=== PATIENT | male | born 1955 | race Caucasian/White ===

== ENCOUNTER 2017-05-26 18:45 | Emergency (ER) | payer OTHER ==
[~2017-05-26] VITALS: Ht 190.5 cm; Wt 100.0 kg
[2017-05-26] VITALS (7 sets, daily range): BP systolic 73–105; BP diastolic 44–67; PULSE 66–98; RESP 16–20; TEMP 97.5; O2SAT 97–100
[2017-05-26] MEDS ORDERED: DIPHTH/TETANUS/ACEL PERTUSSIS (BOOSTER) 0.5 ML VIAL/PFS IM ONE (18:48)
[2017-05-26] MEDS ORDERED: ceFAZolin 2 GM PREMIX 50 ML ONE (18:48)
[2017-05-26 19:06] LABS: AUTOMATED NEUTROPHIL # 3.8 TH/MM3 (1.8-7.7); BASOPHIL % 0.4 % (0.0-2.0); EOSINOPHIL % 0.5 % (0.0-4.0); HEMATOCRIT 37.4 % (39.0-51.0); HEMO FLAGS DIFF FINAL; LYMPH % 32.6 % (9.0-44.0); LYMPHOCYTE # 2.1 TH/MM3 (1.0-4.8); MEAN CELL VOLUME 99.4 FL (80.0-100.0); MEAN CORPUSCULAR HEMOGLOBIN 33.5 PG (27.0-34.0); MEAN CORPUSCULAR HGB CONC 33.7 % (32.0-36.0); MONO % 7.9 % (0.0-8.0); NEUT % 58.6 % (16.0-70.0); PLATELET COUNT 197 TH/MM3 (150-450); RED BLOOD COUNT 3.76 MIL/MM3 (4.50-5.90); RED CELL DISTRIBUTION WIDTH 12.5 % (11.6-17.2); WHITE BLOOD COUNT 6.4 TH/MM3 (4.0-11.0)
--- NOTE | 2017-05-26 19:11 | RADRPT ---
EXAM DATE/TIME: 05/26/2017 18:40 [facility] COMPARISON: No previous studies available for comparison. INDICATIONS : Trauma alert. Fall from ladder, 20 feet. MEDICAL HISTORY : Unobtainable. SURGICAL HISTORY : Unobtainable. ENCOUNTER: Initial ACUITY: 1 day PAIN SCORE: 0/10 LOCATION: Bilateral chest FINDINGS: A single view of the chest demonstrates the lungs to be symmetrically aerated without evidence of mas s, infiltrate or effusion. The cardiomediastinal contours are unremarkable. Osseous structures are intact. CONCLUSION: No acute disease. Kristopher Rossi MD on May 26, 2017 at 19:09 Board Certified Radiologist. This report was verified electronically.
--- NOTE | 2017-05-26 19:11 | RADRPT ---
EXAM DATE/TIME: 05/26/2017 18:40 [facility] COMPARISON: No previous studies available for comparison. INDICATIONS : Trauma alert. Fall from ladder, 20 feet. Mid right lower leg laceration. MEDICAL HISTORY : Unobtainable. SURGICAL HISTORY : Unobtainable. ENCOUNTER: Initial ACUITY: 1 day PAIN SCORE: 5/10 LOCATION: Right lower leg. FINDINGS: Two view examination of the right tibia demonstrates no evidence of fracture or dislocation. Bony mi neralization is normal. The soft tissue structures are intact. CONCLUSION: No definite fracture or joint dislocation. Kristopher Rossi MD on May 26, 2017 at 19:09 Board Certified Radiologist. This report was verified electronically.
--- NOTE | 2017-05-26 19:13 | PD ---
HPI Chief Complaint: Fall Time Seen by Provider: 18:55 Travel History International Travel<30 days: No Contact w/Intl Traveler<30days: No Traveled to known affect area: No History of Present Illness HPI 63-year-old male complains of right leg laceration. Patient states that he fell off a 20 foot ladder today. Patient denies loss of consciousness. Patient denies any headache or neck pain. Patient denies any visual change. She denies any chest pain or shortness of breath. Patient denies abdominal pain. Patient denies any back pain. Patient complains of laceration to right leg. Patient denies any leg pain. Patient is not up-to-date with TD booster. Patient has history of atrial fibrillation and on Eliqis. Patient states that he drove himself to the local fire station after the fall. At the fire station patient had a syncopal episode and blood pressure drop into the 80s. Trauma alert was called. Patient was brought to the ED for evaluation. Patient has no complaint now. EMS personnel reported large amount of blood loss at the scene. [facility] Social History Tobacco Use: No Allergies-Medications (Allergen,Severity, Reaction): Coded Allergies: No Known Allergies (Unverified , 05/26/17) Reported Meds & Prescriptions Reported Meds & Active Scripts Active Keflex (Cephalexin) 500 Mg Capsule 500 Mg PO TID Review of Systems General / Constitutional: No: Fever Eyes: No: Visual changes HENT: No: Headaches Cardiovascular: No: Chest Pain or Discomfort Respiratory: No: Shortness of Breath Gastrointestinal: No: Abdominal Pain Genitourinary: No: Dysuria Musculoskeletal: No: Pain Skin: No Rash Neurologic: No: Weakness Psychiatric: No: Depression Endocrine: No: Polydipsia Hematologic/Lymphatic: No: Easy Bruising Physical Exam Narrative GENERAL: Well-nourished, well-developed patient. SKIN: Focused skin assessment warm/dry. HEAD: Normocephalic. EYES: No scleral icterus. No injection or drainage. Pupils 2 mm equal reactive. NECK: Supple, trachea midline. No JVD or lymphadenopathy. No neck tenderness. CARDIOVASCULAR: Regular rate and rhythm without murmurs, gallops, or rubs. RESPIRATORY: Breath sounds equal bilaterally. No accessory muscle use. GASTROINTESTINAL: Abdomen soft, non-tender, nondistended. MUSCULOSKELETAL: No cyanosis, or edema. BACK: Nontender without obvious deformity. No CVA tenderness. Neurologic exam: Patient's awake and alert oriented 3. No obvious focal neurological deficit. Patient has 6 cm laceration medial aspect the right low leg. No active bleeding. Sensorimotor function distally intact. Data Data Last Documented VS Vital Signs Date Time Temp Pulse Resp B/P (MAP) Pulse Ox O2 Delivery O2 Flow Rate FiO2 05/26/17 23:47 05/26/17 23:00 80 20 99 Room Air 05/26/17 18:57 97.5 05/26/17 18:30 21 Orders Orders Cefazolin 2 Gm Premix (Ancef 2 Gm Premix (05/26/17 18:48) Pxgg-Sbp-Rkgawd (Booster) Inj (Boostrix (05/26/17 18:48) I-Stat Profile (05/26/17 18:47) I-Stat Creatinine (05/26/17 18:47) Complete Blood Count With Diff (05/26/17 18:47) Prothrombin Time / Inr (Pt) (05/26/17 18:47) Act Partial Throm Time (Ptt) (05/26/17 18:47) Type And Screen (05/26/17 18:47) Chest, Single Ap (05/26/17 18:47) Iv Access Insert/Monitor (05/26/17 18:47) Ecg Monitoring (05/26/17 18:47) Oximetry (05/26/17 18:47) Oxygen Administration (05/26/17 18:47) Tibia/Fibula (Ap/Lat) (05/26/17 ) Lidocaine 1% Inj (50 Ml) (Xylocaine 1% I (05/26/17 19:15) Hemoglobin (Hgb) (05/26/17 20:35) Hematocrit (Hct) (05/26/17 20:35) Ed Discharge Order (05/26/17 23:09) Trauma Office Use Only (05/26/17 07:24) Labs Laboratory Tests Test 05/26/17 18:50 05/26/17 20:45 White Blood Count 6.4 TH/MM3 Red Blood Count 3.76 MIL/MM3 Hemoglobin 12.6 GM/DL 11.5 GM/DL Bedside Hemoglobin 12.6 G/DL Hematocrit 37.4 % 34.7 % Bedside Hematocrit 37.0 % Mean Corpuscular Volume 99.4 FL Mean Corpuscular Hemoglobin 33.5 PG Mean Corpuscular Hemoglobin Concent 33.7 % Red Cell Distribution Width 12.5 % Platelet Count 197 TH/MM3 Mean Platelet Volume 8.7 FL Neutrophils (%) (Auto) 58.6 % Lymphocytes (%) (Auto) 32.6 % Monocytes (%) (Auto) 7.9 % Eosinophils (%) (Auto) 0.5 % Basophils (%) (Auto) 0.4 % Neutrophils # (Auto) 3.8 TH/MM3 Lymphocytes # (Auto) 2.1 TH/MM3 Monocytes # (Auto) 0.5 TH/MM3 Eosinophils # (Auto) 0.0 TH/MM3 Basophils # (Auto) 0.0 TH/MM3 CBC Comment DIFF FINAL Differential Comment Prothrombin Time 11.7 SEC Prothromb Time International Ratio 1.1 RATIO Activated Partial Thromboplast Time 24.4 SEC Bedside Sodium 144 MMOL/L Bedside Potassium 4.0 MMOL/L Bedside Chloride 106 MMOL/L Bedside Blood Urea Nitrogen 6 MG/DL Bedside Creatinine 1.2 MG/DL Bedside Glucose 107 MG/DL MDM Medical Decision Making Medical Screen Exam Complete: Yes Emergency Medical Condition: Yes Interpretation(s) Last Impressions Chest X-Ray 05/26/17 1847 Signed Impressions: Service Date/Time: Friday, May 26, 2017 18:40 - CONCLUSION: No acute disease. Kristopher Rossi MD Tibia/Fibula X-Ray 05/26/17 0000 Signed Impressions: Service Date/Time: Friday, May 26, 2017 18:40 - CONCLUSION: No definite fracture or joint dislocation. Kristopher Rossi MD I-STAT sodium 144 potassium 4.0 chloride 106 BUN 6 hemoglobin 12.6. Differential Diagnosis Differential diagnosis including right leg laceration, vasovagal reaction, anemia, dehydration, electrolyte imbalance. Narrative Course 63-year-old male with right leg laceration and syncopal episode. Patient's vital signs stable now. Most likely vasovagal reaction. TD booster given. Ancef 2 g IV given. Patient was given IV fluid, normal saline solution 3 L IV bolus. Blood pressure occasionally dipped into the 70s and 80s in the ED. Patient absolutely refused to be admitted. Patient wants to go home. Diagnosis Primary Impression: Laceration of right lower leg Qualified Codes: S81.811A - Laceration without foreign body, right lower leg, initial encounter Additional Impressions: Hypotension Qualified Codes: I95.9 - Hypotension, unspecified Syncope Qualified Codes: R55 - Syncope and collapse Patient Instructions: General Instructions Additional Instructions: Wound care daily. Keflex as directed. Follow-up with personal physician or return in 10 days for suture removal. Scripts Cephalexin (Keflex) 500 Mg Capsule 500 MG PO TID for Infection, #15 CAP 0 Refills Prov: Juan Pablo Eagle MD 05/26/17 Disposition: 01 DISCHARGE HOME Condition: Stable Juan Pablo Eagle MD May 26, 2017 19:13
[2017-05-26] MEDS ORDERED: LIDOCAINE HCL 1% 50 ML VIAL INFIL ONE (19:15)
[2017-05-26 19:23] LABS: APTT (PATIENT) 24.4 SEC (24.3-30.1); INTERNATIONAL NORMALIZED RATIO 1.1 RATIO; PROTHROMBIN TIME - PATIENT 11.7 SEC (9.8-11.6)
[2017-05-26] MEDS ORDERED: CEPH-460 PO (19:30)
--- NOTE | 2017-05-26 20:42 | PD ---
Physical Exam Narrative I was asked by Dr. Eagle to repair patient's leg laceration. Please see his documentation for full H&P. Data Data Last Documented VS Vital Signs Date Time Temp Pulse Resp B/P (MAP) Pulse Ox O2 Delivery O2 Flow Rate FiO2 05/26/17 19:27 66 16 91/52 (65) 100 Room Air 05/26/17 18:57 97.5 05/26/17 18:30 21 Orders Orders Cefazolin 2 Gm Premix (Ancef 2 Gm Premix (05/26/17 18:48) Qawu-Gbs-Tnorld (Booster) Inj (Boostrix (05/26/17 18:48) I-Stat Profile (05/26/17 18:47) I-Stat Creatinine (05/26/17 18:47) Complete Blood Count With Diff (05/26/17 18:47) Prothrombin Time / Inr (Pt) (05/26/17 18:47) Act Partial Throm Time (Ptt) (05/26/17 18:47) Type And Screen (05/26/17 18:47) Chest, Single Ap (05/26/17 18:47) Iv Access Insert/Monitor (05/26/17 18:47) Ecg Monitoring (05/26/17 18:47) Oximetry (05/26/17 18:47) Oxygen Administration (05/26/17 18:47) Tibia/Fibula (Ap/Lat) (05/26/17 ) Drug Screen, Random Urine (05/26/17 18:57) Lidocaine 1% Inj (50 Ml) (Xylocaine 1% I (05/26/17 19:15) Hemoglobin (Hgb) (05/26/17 20:35) Hematocrit (Hct) (05/26/17 20:35) Labs Laboratory Tests Test 05/26/17 18:50 White Blood Count 6.4 TH/MM3 Red Blood Count 3.76 MIL/MM3 Hemoglobin 12.6 GM/DL Bedside Hemoglobin 12.6 G/DL Hematocrit 37.4 % Bedside Hematocrit 37.0 % Mean Corpuscular Volume 99.4 FL Mean Corpuscular Hemoglobin 33.5 PG Mean Corpuscular Hemoglobin Concent 33.7 % Red Cell Distribution Width 12.5 % Platelet Count 197 TH/MM3 Mean Platelet Volume 8.7 FL Neutrophils (%) (Auto) 58.6 % Lymphocytes (%) (Auto) 32.6 % Monocytes (%) (Auto) 7.9 % Eosinophils (%) (Auto) 0.5 % Basophils (%) (Auto) 0.4 % Neutrophils # (Auto) 3.8 TH/MM3 Lymphocytes # (Auto) 2.1 TH/MM3 Monocytes # (Auto) 0.5 TH/MM3 Eosinophils # (Auto) 0.0 TH/MM3 Basophils # (Auto) 0.0 TH/MM3 CBC Comment DIFF FINAL Differential Comment Prothrombin Time 11.7 SEC Prothromb Time International Ratio 1.1 RATIO Activated Partial Thromboplast Time 24.4 SEC Bedside Sodium 144 MMOL/L Bedside Potassium 4.0 MMOL/L Bedside Chloride 106 MMOL/L Bedside Blood Urea Nitrogen 6 MG/DL Bedside Creatinine 1.2 MG/DL Bedside Glucose 107 MG/DL MDM Supervised Visit with KISHAN: No Procedures Procedure Narrative LACERATION REPAIR LOCATION: This patient on the right mid shaft medial aspect of right lower extremity LENGTH: Approximately 8 centimeters in total length NUMBER OF STITCHES/ONEIL: 10 combination simple interrupted and simple mattress REPAIR: Verbal consent was obtained. The area of the laceration was cleaned and prepped. The laceration was infiltrated with lidocaine without epi. The wound was copiously irrigated and explored without evidence of foreign body, bony involvement, ligament injury, tendon injury, or neurovascular injury. The wound was closed using 3-0 Ethilon. This was a single layer repair. A sterile dressing was applied by nurse. The patient was advised to keep the affected area as clean and dry as possible using soap and water. There were no complications. Patient tolerated the procedure well. Diagnosis Primary Impression: Laceration of right lower leg Qualified Codes: S81.811A - Laceration without foreign body, right lower leg, initial encounter Additional Impressions: Syncope Qualified Codes: R55 - Syncope and collapse Hypotension Qualified Codes: I95.9 - Hypotension, unspecified Patient Instructions: General Instructions Additional Instruction: Wound care daily. Keflex as directed. Follow-up with personal physician or return in 10 days for suture removal. Scripts Cephalexin (Keflex) 500 Mg Capsule 500 MG PO TID for Infection, #15 CAP 0 Refills Prov: Juan Pablo Eagle MD 05/26/17 Disposition: 01 DISCHARGE HOME Condition: Stable Justen Will May 26, 2017 20:42
[2017-05-26 20:57] LABS: HEMATOCRIT 34.7 % (39.0-51.0)
== END 2017-05-26 23:49 | disposition home or self-care (01) ==
LOC: EDBD 18:45 → NEPI 18:45 → NEPE 23:49
DX: S81.811A Laceration without foreign body, right lower leg, initial encounter (principal); R55 Syncope and collapse; I95.9 Hypotension, unspecified; W11.XXXA Fall on and from ladder, initial encounter; Z23 Encounter for immunization
CPT/HCPCS: 12004; 71010; 73590; 82435; 82565; 82947; 84132; 84295; 84520; 85014; 85018; 85025; 85610; 85730; 86850; 86900; 86901; 90471; 90715; 96374; 99284; 99291; J0690; G0390